=== PATIENT | female | born 1935 | race African-American/Black ===

== ENCOUNTER 2017-07-06 03:07 | Observation (INO) | payer MEDICARE, OTHER ==
[~2017-07-06] VITALS: Ht 157.5 cm; Wt 55.3 kg
[~2017-07-06 03:07] MED LIST: ASA PO; ATENOLOL PO; KDUR20 PO; LISINOPRIL PO; PROT40 PO
[2017-07-06] MEDS ORDERED: NITROGLYCERIN OINT 1GM/INCH UDPKT TD STA (03:50)
[2017-07-06 04:23] LABS: BASOPHILS % 0.9 % (0.0-2.0); EOSINOPHILS % 4.2 % (0.0-5.0); HEMATOCRIT. 33.4 % (36.0-48.0); HEMOGLOBIN. 11.2 g/dL (12.0-16.0); LYMPHOCYTES % 21.8 % (20.0-50.0); MEAN CORPUSCULAR HEMOGLOBIN 29.9 pg (28.0-32.0); MEAN CORPUSCULAR VOLUME 89.4 fL (81.0-99.0); MEAN PLATELET VOLUME 8.8 fl (7.4-10.4); MONOCYTES % 7.1 % (2.0-8.0); PLATELET 191 x1000/uL (130-400); RED BLOOD CELL COUNT 3.74 mill/uL (4.2-5.4); RED CELL DISTRIBUTION WIDTH 14.4 % (11.6-14.6)
[2017-07-06 04:42] LABS: CARBON DIOXIDE 29 mEq/L (21-32); CHLORIDE 106 mEq/L (98-107); TROPONIN I < 0.02 ng/mL (0.00-0.04)
[2017-07-06] MEDS ORDERED: CLONIDINE 0.1MG TABLET PO SCH (07:45)
[2017-07-06 08:50] VITALS: BP 174/96
[2017-07-06 09:15] VITALS: BP 174/96
[2017-07-06] MEDS ORDERED: PNEUMOCOCCAL 23-VAL P-SAC VAC 0.5 ML IM ONE (10:00)
[2017-07-06] MEDS: ENOXAPARIN 30MG/0.3ML SYR SUBCUT SCH (11:41)
[2017-07-06 12:00] VITALS: BP 127/67
[2017-07-06] MEDS ORDERED: POTASSIUM CHLORIDE 20MEQ TABLET SR PO NR (12:15)
[2017-07-06] MEDS ORDERED: REGADENOSON 0.4 MG/5 ML IV ONE (13:15)
[2017-07-06] MEDS: HYDROCHLOROTHIAZIDE 25MG TABLET PO SCH (13:34)
[2017-07-06] MEDS: LISINOPRIL 40MG TABLET PO SCH (13:34)
[2017-07-06] MEDS: ATENOLOL 50 MG TABLET PO SCH (13:35)
[2017-07-06 16:00] VITALS: BP 147/81
[2017-07-06 17:03] LABS: TROPONIN I < 0.02 ng/mL (0.00-0.04)
[2017-07-06 20:00] VITALS: BP 159/73
[2017-07-06] MEDS ORDERED: ACETAMINOPHEN 325MG TABLET PO PRN (22:15)
[2017-07-06] MEDS ORDERED: HYDROCODONE/ACETAMINOPHEN 5/325MG TABLET PO PRN (22:15)
[2017-07-06 23:47] VITALS: BP 146/68
[2017-07-07 04:06] VITALS: BP 173/82
[2017-07-07] MEDS: CLONIDINE 0.1MG TABLET PO PRN ×2 (04:14→14:34)
[2017-07-07 05:41] LABS: BASOPHILS % 1.3 % (0.0-2.0); EOSINOPHILS % 7.1 % (0.0-5.0); HEMATOCRIT. 32.7 % (36.0-48.0); HEMOGLOBIN. 10.7 g/dL (12.0-16.0); MEAN CORPUSCULAR HEMOGLOBIN 29.6 pg (28.0-32.0); MEAN CORPUSCULAR VOLUME 90.4 fL (81.0-99.0); MEAN PLATELET VOLUME 9.2 fl (7.4-10.4); MONOCYTES % 9.5 % (2.0-8.0); NEUTROPHILS % 46.1 % (40.0-76.0); PLATELET 190 x1000/uL (130-400); RED BLOOD CELL COUNT 3.62 mill/uL (4.2-5.4); RED CELL DISTRIBUTION WIDTH 14.2 % (11.6-14.6)
[2017-07-07 06:18] LABS: CARBON DIOXIDE 26 mEq/L (21-32); CHLORIDE 108 mEq/L (98-107)
[2017-07-07 08:00] VITALS: BP 128/72
[2017-07-07] MEDS ORDERED: POTASSIUM CHLORIDE 20MEQ TABLET SR PO SCH (08:00)
[2017-07-07] MEDS: HYDROCHLOROTHIAZIDE 25MG TABLET PO SCH (08:33)
[2017-07-07] MEDS: ENOXAPARIN 30MG/0.3ML SYR SUBCUT SCH (08:33)
[2017-07-07] MEDS: ATENOLOL 50 MG TABLET PO SCH (08:33)
[2017-07-07] MEDS: LISINOPRIL 40MG TABLET PO SCH (08:34)
[2017-07-07] MEDS ORDERED: REGADENOSON 0.4 MG/5 ML IV ONE (13:11)
[2017-07-07 14:05] VITALS: BP 178/85
[2017-07-07 15:35] VITALS: BP 149/69
[2017-07-07 15:42] VITALS: BP 149/69
[2017-07-07 16:00] VITALS: BP 135/68
== END 2017-07-07 17:45 | disposition home or self-care (01) ==
LOC: ER 03:09 → 6WST 05:48 → INTOOBSV 05:48 → ENRESERV 07:10
PROVIDERS: ADMIT Internal Medicine; ATTEND Internal Medicine
DX: R07.89 Other chest pain (principal); I10 Essential (primary) hypertension; E87.6 Hypokalemia; K21.9 Gastro-esophageal reflux disease without esophagitis; Z23 Encounter for immunization
CPT/HCPCS: 36415; 71010; 78452; 80048; 80053; 80061; 83690; 83735; 84484; 85025; 90471; 93005; 93017; 93306; 93970; 96372; 99285; A9500; G0378; J1650; J2785; 90732

== ENCOUNTER 2018-06-14 18:13 | Emergency (ER) | payer OTHER ==
[~2018-06-14] VITALS: Ht 162.6 cm; Wt 57.0 kg
[2018-06-14 18:47] LABS: EOSINOPHILS % 1.8 % (0.0-5.0); HEMATOCRIT. 36.2 % (36.0-48.0); LYMPHOCYTES % 30.1 % (20.0-50.0); MEAN CORPUSCULAR VOLUME 90.6 fL (81.0-99.0); MEAN PLATELET VOLUME 8.3 fl (7.4-10.4); NEUTROPHILS % 58.1 % (40.0-76.0); PLATELET 244 x1000/uL (130-400); RED CELL DISTRIBUTION WIDTH 14.7 % (11.6-14.6)
[2018-06-14] MEDS ORDERED: ONDANSETRON HCL 4MG/2ML VIAL IV STA (18:51)
[2018-06-14] MEDS ORDERED: SODIUM CHLORIDE 0.9% 1,000 ML IV ONE (18:51)
[2018-06-14 18:52] LABS: CHLORIDE 105 mEq/L (98-107)
[2018-06-14 18:53] LABS: PROTHROMBIN TIME 10.5 sec (9.4-11.6)
[2018-06-14] MEDS ORDERED: FAMOTIDINE 20MG/2ML VIAL IV ONE (19:00)
[2018-06-14] MEDS ORDERED: CLONIDINE 0.2MG TABLET PO ONE (19:45)
[2018-06-14 20:48] LABS: CLARITY URINE CLEAR (CLEAR); COLOR URINE YELLOW (YELLOW); KETONES URINE NEGATIVE (NEGATIVE); LEUKOCYTE ESTERASE URINE 3+ (NEGATIVE); NITRITE URINE NEGATIVE (NEGATIVE); OCCULT BLOOD URINE TRACE (NEGATIVE); PH URINE 5.5 (4.5-8.0); PROTEIN URINE NEGATIVE (NEGATIVE); SPECIFIC GRAVITY URINE 1.017 (1.005-1.030); UROBILINOGEN URINE 0.2 E.U./dL (0.2-1.0)
[2018-06-14 21:40] VITALS: BP 164/110
== END 2018-06-14 23:11 | disposition home or self-care (01) ==
LOC: ER 18:19
DX: K80.80 Other cholelithiasis without obstruction (principal); N39.0 Urinary tract infection, site not specified; I10 Essential (primary) hypertension
CPT/HCPCS: 36415; 71045; 76700; 80053; 81003; 83690; 85025; 85610; 85730; 87086; 93005; 99285; J7030

== ENCOUNTER 2018-09-30 17:38 | Inpatient (IN) | payer OTHER ==
[~2018-09-30] VITALS: Ht 157.5 cm; Wt 53.5 kg
[2018-09-30] MEDS ORDERED: SODIUM CHLORIDE 0.9% 1,000 ML IV ONE (18:21)
[2018-09-30] MEDS ORDERED: SODIUM CHLORIDE 0.9% 1000ML BAG (SEPSIS BOLUS) IV ONE (18:30)
[2018-09-30] MEDS ORDERED: LEVOFLOXACIN 750MG PREMIX 150 ML IV ONE (18:30)
[2018-09-30] MEDS ORDERED: ACETAMINOPHEN 325MG TABLET PO ONE (18:30)
[2018-09-30 19:05] LABS: BASOPHILS % 0.6 % (0.0-2.0); EOSINOPHILS % 2.8 % (0.0-5.0); HEMATOCRIT. 23.6 % (36.0-48.0); HEMOGLOBIN. 8.2 g/dL (12.0-16.0); LYMPHOCYTES % 20.4 % (20.0-50.0); MEAN CORPUSCULAR HEMOGLOBIN 31.3 pg (28.0-32.0); MEAN CORPUSCULAR VOLUME 90.3 fL (81.0-99.0); MEAN PLATELET VOLUME 8.9 fl (7.4-10.4); NEUTROPHILS % 68.2 % (40.0-76.0); PLATELET 169 x1000/uL (130-400); RED BLOOD CELL COUNT 2.62 mill/uL (4.2-5.4); RED CELL DISTRIBUTION WIDTH 15.1 % (11.6-14.6)
[2018-09-30 19:08] LABS: CHLORIDE 110 mEq/L (98-107)
[2018-09-30 19:10] LABS: PARTIAL THROMBOPLASTIN TIME 23.3 sec (23.4-31.0)
[2018-09-30 22:03] LABS: CLARITY URINE CLEAR (CLEAR); COLOR URINE YELLOW (YELLOW); KETONES URINE NEGATIVE (NEGATIVE); LEUKOCYTE ESTERASE URINE 3+ (NEGATIVE); NITRITE URINE NEGATIVE (NEGATIVE); OCCULT BLOOD URINE 1+ (NEGATIVE); PH URINE 6.5 (4.5-8.0); PROTEIN URINE NEGATIVE (NEGATIVE); SPECIFIC GRAVITY URINE 1.004 (1.005-1.030); UROBILINOGEN URINE 0.2 E.U./dL (0.2-1.0)
[2018-09-30] MEDS ORDERED: IOHEXOL-350 100 ML BOTTLE ONE (22:28)
[2018-10-01] VITALS (7 sets, daily range): BP systolic 142–180; BP diastolic 60–88
[2018-10-01 08:52] LABS: CHLORIDE 114 mEq/L (98-107); RED BLOOD CELL COUNT 2.67 mill/uL (4.2-5.4)
[2018-10-01 08:53] LABS: BASOPHILS % 0.5 % (0.0-2.0); EOSINOPHILS % 2.2 % (0.0-5.0); HEMATOCRIT. 24.3 % (36.0-48.0); HEMOGLOBIN. 8.2 g/dL (12.0-16.0); LYMPHOCYTES % 15.1 % (20.0-50.0); MEAN CORPUSCULAR HEMOGLOBIN 30.6 pg (28.0-32.0); MEAN PLATELET VOLUME 8.6 fl (7.4-10.4); MONOCYTES % 7.8 % (2.0-8.0); NEUTROPHILS % 74.4 % (40.0-76.0); PLATELET 194 x1000/uL (130-400); RED CELL DISTRIBUTION WIDTH 15.1 % (11.6-14.6)
[2018-10-01] MEDS: LISINOPRIL 40MG TABLET PO SCH (09:26)
[2018-10-01] MEDS: ATENOLOL 100 MG TABLET PO SCH (11:00)
[2018-10-01 15:38] LABS: HEMATOCRIT 25.4 % (36.0-48.0); HEMOGLOBIN 8.6 g/dL (12.0-16.0)
[2018-10-01] MEDS: PANTOPRAZOLE SODIUM 40 MG/VIAL IV SCH (16:24)
[2018-10-01] MEDS: DEXT 5%/0.45% NACL 1000ML 1,000 ML IV SCH (16:24)
[2018-10-01] MEDS: LEVOFLOXACIN 250MG PREMIX 50 ML IV SCH (17:19)
[2018-10-01] MEDS: CLONIDINE 0.1MG TABLET PO PRN (19:02)
[2018-10-01 20:00] LABS: HEMOGLOBIN 8.9 g/dL (12.0-16.0)
[2018-10-01] MEDS: AMLODIPINE 5MG TABLET PO SCH (21:46)
[2018-10-02] VITALS: BP 145/69
[2018-10-02 02:34] LABS: HEMATOCRIT 21.9 % (36.0-48.0); HEMOGLOBIN 7.6 g/dL (12.0-16.0)
[2018-10-02 04:00] VITALS: BP 163/76
[2018-10-02 05:29] LABS: BASOPHILS % 0.5 % (0.0-2.0); EOSINOPHILS % 3.6 % (0.0-5.0); HEMATOCRIT. 22.2 % (36.0-48.0); HEMOGLOBIN. 7.7 g/dL (12.0-16.0); LYMPHOCYTES % 21.2 % (20.0-50.0); MEAN CORPUSCULAR HEMOGLOBIN 31.3 pg (28.0-32.0); MEAN CORPUSCULAR VOLUME 90.3 fL (81.0-99.0); MEAN PLATELET VOLUME 8.4 fl (7.4-10.4); MONOCYTES % 9.2 % (2.0-8.0); NEUTROPHILS % 65.5 % (40.0-76.0); PLATELET 193 x1000/uL (130-400); RED BLOOD CELL COUNT 2.46 mill/uL (4.2-5.4); RED CELL DISTRIBUTION WIDTH 15.4 % (11.6-14.6)
[2018-10-02] MEDS: CLONIDINE 0.1MG TABLET PO PRN (06:15)
[2018-10-02] MEDS: DEXT 5%/0.45% NACL 1000ML 1,000 ML IV SCH (06:47)
[2018-10-02 07:52] VITALS: BP 131/66
[2018-10-02] MEDS: GUAIFENESIN-DM 200MG-20MG/10ML UDC PO PRN (08:04)
[2018-10-02] MEDS: AMLODIPINE 5MG TABLET PO SCH ×2 (08:04→21:38)
[2018-10-02] MEDS: PANTOPRAZOLE SODIUM 40 MG/VIAL IV SCH (08:04)
[2018-10-02] MEDS: ATENOLOL 100 MG TABLET PO SCH (08:04)
[2018-10-02] MEDS: LISINOPRIL 40MG TABLET PO SCH (08:04)
[2018-10-02] MEDS ORDERED: POTASSIUM CHLORIDE 20MEQ TABLET SR PO NR ×2 (11:10→11:20)
[2018-10-02 11:45] VITALS: BP 131/61
[2018-10-02] MEDS ORDERED: MAGNESIUM 4 G PREMIX 100 ML IV NR (12:30)
[2018-10-02 16:00] VITALS: BP 125/60
[2018-10-02] MEDS: LEVOFLOXACIN 250MG PREMIX 50 ML IV SCH (17:04)
[2018-10-02 20:00] VITALS: BP 122/60
[2018-10-03] VITALS: BP 110/65
[2018-10-03] MEDS: DEXT 5%/0.45% NACL 1000ML 1,000 ML IV SCH ×2 (01:13→08:52)
[2018-10-03 04:00] VITALS: BP 130/66
[2018-10-03 06:25] LABS: HEMATOCRIT 23.2 % (36.0-48.0); HEMOGLOBIN 7.9 g/dL (12.0-16.0)
[2018-10-03 08:00] VITALS: BP 121/61
[2018-10-03] MEDS: LISINOPRIL 40MG TABLET PO SCH (08:52)
[2018-10-03] MEDS: ATENOLOL 100 MG TABLET PO SCH (08:52)
[2018-10-03] MEDS: PANTOPRAZOLE SODIUM 40 MG/VIAL IV SCH (08:52)
[2018-10-03] MEDS: AMLODIPINE 5MG TABLET PO SCH ×2 (08:53→21:53)
[2018-10-03 12:00] VITALS: BP 148/59
[2018-10-03 16:00] VITALS: BP 151/62
[2018-10-03] MEDS: LEVOFLOXACIN 250MG PREMIX 50 ML IV SCH (17:04)
[2018-10-03 20:00] VITALS: BP 118/60
[2018-10-04] VITALS: BP 145/75
[2018-10-04] MEDS: ACETAMINOPHEN 325MG TABLET PO PRN (01:35)
[2018-10-04] MEDS ORDERED: MORPHINE SULFATE 4 MG/ML CPJ (NOT FOR IM USE) IV NR (02:15)
[2018-10-04] MEDS: DEXT 5%/0.45% NACL 1000ML 1,000 ML IV SCH ×2 (03:35→10:33)
[2018-10-04 04:00] VITALS: BP 146/70
[2018-10-04] MEDS: AMLODIPINE 5MG TABLET PO SCH ×2 (09:00→21:54)
[2018-10-04] MEDS: LISINOPRIL 40MG TABLET PO SCH (10:33)
[2018-10-04] MEDS: ATENOLOL 100 MG TABLET PO SCH (10:33)
[2018-10-04] MEDS: PANTOPRAZOLE SODIUM 40 MG/VIAL IV SCH (10:33)
[2018-10-04] MEDS: LEVOFLOXACIN 250MG PREMIX 50 ML IV SCH (17:00)
[2018-10-04 17:04] LABS: HEMATOCRIT 24.7 % (36.0-48.0); HEMOGLOBIN 8.4 g/dL (12.0-16.0); MEAN CORPUSCULAR VOLUME 91.1 fL (81.0-99.0); PLATELET 253 x1000/uL (130-400); RED BLOOD CELL COUNT 2.71 mill/uL (4.2-5.4); RED CELL DISTRIBUTION WIDTH 15.3 % (11.6-14.6)
[2018-10-04] MEDS: ONDANSETRON HCL 4MG/2ML INJ IV PRN (20:25)
[2018-10-04 21:26] VITALS: BP 152/65
[2018-10-05 08:00] VITALS: BP 138/60
[2018-10-05] MEDS: LISINOPRIL 40MG TABLET PO SCH (11:50)
[2018-10-05] MEDS: ATENOLOL 100 MG TABLET PO SCH (11:50)
[2018-10-05] MEDS: AMLODIPINE 5MG TABLET PO SCH ×2 (11:50→20:54)
[2018-10-05 12:00] VITALS: BP 111/59
[2018-10-05] MEDS: DEXT 5%/0.45% NACL 1000ML 1,000 ML IV SCH ×2 (12:35→13:46)
[2018-10-05] MEDS: PANTOPRAZOLE SODIUM 40 MG/VIAL IV SCH (13:38)
[2018-10-05 16:00] VITALS: BP 130/61
[2018-10-05] MEDS: LEVOFLOXACIN 250MG PREMIX 50 ML IV SCH (17:01)
[2018-10-05 20:00] VITALS: BP 113/74
[2018-10-06] VITALS: BP 133/64
[2018-10-06] MEDS: DEXT 5%/0.45% NACL 1000ML 1,000 ML IV SCH ×2 (01:42→18:25)
[2018-10-06 04:00] VITALS: BP 153/73
[2018-10-06 08:00] VITALS: BP 142/57
[2018-10-06] MEDS: AMLODIPINE 5MG TABLET PO SCH ×2 (09:52→21:06)
[2018-10-06] MEDS: LISINOPRIL 40MG TABLET PO SCH (09:53)
[2018-10-06] MEDS: ATENOLOL 100 MG TABLET PO SCH (09:53)
[2018-10-06] MEDS: PANTOPRAZOLE SODIUM 40 MG/VIAL IV SCH (09:53)
[2018-10-06 12:30] VITALS: BP 120/77
[2018-10-06 16:00] VITALS: BP 124/59
[2018-10-06] MEDS: LEVOFLOXACIN 250MG PREMIX 50 ML IV SCH (18:25)
[2018-10-06 20:00] VITALS: BP 136/63
[2018-10-06] MEDS: ONDANSETRON HCL 4MG/2ML INJ IV PRN (21:35)
[2018-10-07] VITALS: BP 118/50
[2018-10-07 04:00] VITALS: BP 133/59
[2018-10-07 08:00] VITALS: BP 142/73
[2018-10-07] MEDS: PANTOPRAZOLE SODIUM 40 MG/VIAL IV SCH (10:25)
[2018-10-07] MEDS: LISINOPRIL 40MG TABLET PO SCH (10:25)
[2018-10-07] MEDS: AMLODIPINE 5MG TABLET PO SCH ×2 (10:25→20:46)
[2018-10-07] MEDS: ATENOLOL 100 MG TABLET PO SCH (10:26)
[2018-10-07] MEDS: DEXT 5%/0.45% NACL 1000ML 1,000 ML IV SCH (11:58)
[2018-10-07 12:00] VITALS: BP 128/60
[2018-10-07 16:00] VITALS: BP 125/50
[2018-10-07] MEDS: LEVOFLOXACIN 250MG PREMIX 50 ML IV SCH (18:38)
[2018-10-07 20:00] VITALS: BP 121/68
[2018-10-07] MEDS: DOCUSATE SODIUM 100MG CAPSULE PO SCH (20:46)
[2018-10-08] VITALS: BP 141/65
[2018-10-08 04:00] VITALS: BP 131/67
[2018-10-08] MEDS: DEXT 5%/0.45% NACL 1000ML 1,000 ML IV SCH (06:19)
[2018-10-08 08:00] VITALS: BP 127/42
[2018-10-08] MEDS: AMLODIPINE 5MG TABLET PO SCH ×2 (09:13→21:51)
[2018-10-08] MEDS: ATENOLOL 100 MG TABLET PO SCH (09:13)
[2018-10-08] MEDS: DOCUSATE SODIUM 100MG CAPSULE PO SCH ×2 (09:13→16:26)
[2018-10-08] MEDS: PANTOPRAZOLE SODIUM 40 MG/VIAL IV SCH (09:14)
[2018-10-08] MEDS: LISINOPRIL 40MG TABLET PO SCH (09:14)
[2018-10-08 12:00] VITALS: BP 111/49
[2018-10-08 16:00] VITALS: BP 112/30
[2018-10-08] MEDS: LEVOFLOXACIN 250MG PREMIX 50 ML IV SCH (16:26)
[2018-10-08 20:00] VITALS: BP 148/71
[2018-10-09] VITALS: BP 139/60
[2018-10-09 04:00] VITALS: BP 142/73
[2018-10-09] MEDS: ACETAMINOPHEN 325MG TABLET PO PRN ×2 (07:06→23:08)
[2018-10-09] MEDS: DEXT 5%/0.45% NACL 1000ML 1,000 ML IV SCH ×2 (07:34→23:01)
[2018-10-09 08:00] VITALS: BP 134/64
[2018-10-09] MEDS: DOCUSATE SODIUM 100MG CAPSULE PO SCH ×2 (09:09→16:52)
[2018-10-09] MEDS: LISINOPRIL 40MG TABLET PO SCH (09:09)
[2018-10-09] MEDS: ATENOLOL 100 MG TABLET PO SCH (09:10)
[2018-10-09] MEDS: AMLODIPINE 5MG TABLET PO SCH ×2 (09:10→22:51)
[2018-10-09] MEDS: PANTOPRAZOLE SODIUM 40 MG/VIAL IV SCH (09:10)
[2018-10-09 12:00] VITALS: BP 138/70
[2018-10-09 16:00] VITALS: BP 142/64
[2018-10-09 20:00] VITALS: BP 121/41
[2018-10-10] VITALS: BP 140/61
[2018-10-10 04:00] VITALS: BP 145/65
[2018-10-10] MEDS: DEXT 5%/0.45% NACL 1000ML 1,000 ML IV SCH ×2 (05:35→21:47)
[2018-10-10 08:00] VITALS: BP 137/53
[2018-10-10] MEDS: LISINOPRIL 40MG TABLET PO SCH (08:51)
[2018-10-10] MEDS: DOCUSATE SODIUM 100MG CAPSULE PO SCH ×2 (08:51→16:16)
[2018-10-10] MEDS: AMLODIPINE 5MG TABLET PO SCH ×2 (08:51→21:41)
[2018-10-10] MEDS: ATENOLOL 100 MG TABLET PO SCH (08:51)
[2018-10-10] MEDS: PANTOPRAZOLE SODIUM 40 MG/VIAL IV SCH (08:51)
[2018-10-10 12:00] VITALS: BP 130/67
[2018-10-10 16:00] VITALS: BP 120/45
[2018-10-10 20:00] VITALS: BP 118/48
[2018-10-10] MEDS: ACETAMINOPHEN 325MG TABLET PO PRN (21:41)
[2018-10-10] MEDS: GUAIFENESIN-DM 200MG-20MG/10ML UDC PO PRN (21:41)
[2018-10-11] VITALS: BP_SYST 113; BP_SYST 120; BP_DIAS 57; BP_DIAS 76
[2018-10-11 04:00] VITALS: BP 108/49
[2018-10-11 08:00] VITALS: BP 128/59
[2018-10-11] MEDS: PANTOPRAZOLE SODIUM 40 MG/VIAL IV SCH (10:36)
[2018-10-11] MEDS: ATENOLOL 100 MG TABLET PO SCH (10:36)
[2018-10-11] MEDS: DOCUSATE SODIUM 100MG CAPSULE PO SCH ×2 (10:36→17:48)
[2018-10-11] MEDS: AMLODIPINE 5MG TABLET PO SCH ×2 (10:36→20:57)
[2018-10-11] MEDS: LISINOPRIL 40MG TABLET PO SCH (10:36)
[2018-10-11 12:00] VITALS: BP 150/73
[2018-10-11 16:00] VITALS: BP 125/63
[2018-10-11 20:00] VITALS: BP 143/64
[2018-10-12 00:41] VITALS: BP 135/59
[2018-10-12 04:30] VITALS: BP 124/51
[2018-10-12 08:00] VITALS: BP 136/82
[2018-10-12] MEDS: PANTOPRAZOLE SODIUM 40 MG/VIAL IV SCH (09:21)
[2018-10-12] MEDS: DOCUSATE SODIUM 100MG CAPSULE PO SCH (09:22)
[2018-10-12] MEDS: LISINOPRIL 40MG TABLET PO SCH (09:22)
[2018-10-12] MEDS: AMLODIPINE 5MG TABLET PO SCH (09:22)
[2018-10-12] MEDS: ATENOLOL 100 MG TABLET PO SCH (09:23)
[2018-10-12 12:00] VITALS: BP 113/44
== END 2018-10-12 15:30 | DRG 378 ==
LOC: ER 17:38 → 5WST 21:28 → ENRESERV 21:41
PROVIDERS: ADMIT Internal Medicine; ATTEND Internal Medicine
DX: K57.31 Diverticulosis of large intestine without perforation or abscess with bleeding (principal); E87.0 Hyperosmolality and hypernatremia; E44.1 Mild protein-calorie malnutrition; R07.89 Other chest pain; K80.20 Calculus of gallbladder without cholecystitis without obstruction; R10.9 Unspecified abdominal pain; K57.91 Diverticulosis of intestine, part unspecified, without perforation or abscess with bleeding; M62.81 Muscle weakness (generalized); K59.00 Constipation, unspecified; E87.6 Hypokalemia; E83.42 Hypomagnesemia; D64.9 Anemia, unspecified; F03.90 Unspecified dementia, unspecified severity, without behavioral disturbance, psychotic disturbance, mood disturbance, and anxiety; I10 Essential (primary) hypertension; Z82.49 Family history of ischemic heart disease and other diseases of the circulatory system; Z68.21 Body mass index [BMI] 21.0-21.9, adult; Z79.899 Other long term (current) drug therapy
CPT/HCPCS: 36415; 71045; 71275; 80048; 80051; 80061; 82962; 83036; 83605; 83735; 83880; 84484; 85014; 85018; 85027; 85379; 86850; 86900; 93005; 93970; 96365; 96366; 97162; 99285; C1893; C9113; J1956; J2405; J3475; J3490; J7030; Q9967

== ENCOUNTER 2022-07-09 16:12 | Inpatient (IN) | payer OTHER ==
[~2022-07-09] VITALS: Ht 162.6 cm; Wt 54.4 kg
[~2022-07-09 16:12] MED LIST changes: +AMLO5TAB88 PO; -KDUR20 PO; -PROT40 PO
[2022-07-09] MEDS ORDERED: SODIUM CHLORIDE 0.9% 1,000 ML IV ONE ×2 (18:45→22:45)
[2022-07-09 18:53] LABS: EOSINOPHILS % 2.9 % (0.0-5.0); HEMATOCRIT. 29.7 % (36.0-48.0); HEMOGLOBIN. 9.6 g/dL (12.0-16.0); MEAN CORPUSCULAR HEMOGLOBIN 28.7 pg (28.0-32.0); MEAN CORPUSCULAR VOLUME 88.5 fL (81.0-99.0); MEAN PLATELET VOLUME 8.4 fl (7.4-10.4); NEUTROPHILS % 59.1 % (40.0-76.0); PLATELET 288 x1000/uL (130-400); RED BLOOD CELL COUNT 3.35 mill/uL (4.2-5.4); RED CELL DISTRIBUTION WIDTH 15.7 % (11.6-14.6)
[2022-07-09 19:04] LABS: CHLORIDE 110 mEq/L (98-107)
[2022-07-09 20:38] LABS: PROTHROMBIN TIME 10.9 sec (9.6-11.0)
[2022-07-09 22:09] LABS: CLARITY URINE CLOUDY (CLEAR); COLOR URINE RED (YELLOW); KETONES URINE NEGATIVE (NEGATIVE); LEUKOCYTE ESTERASE URINE 3+ (NEGATIVE); NITRITE URINE NEGATIVE (NEGATIVE); OCCULT BLOOD URINE 3+ (NEGATIVE); PH URINE 8.5 (4.5-8.0); PROTEIN URINE 1+ (NEGATIVE); SPECIFIC GRAVITY URINE 1.008 (1.005-1.030); UROBILINOGEN URINE 0.2 E.U./dL (0.2-1.0)
[2022-07-09] MEDS ORDERED: HALOPERIDOL LACTATE 5MG/ML VIAL IM ONE (22:45)
[2022-07-09] MEDS ORDERED: CEFTRIAXONE 1 G PREMIX 50 ML IV ONE (22:45)
[2022-07-10] MEDS ORDERED: CLONIDINE 0.2MG TABLET PO NR (08:15)
[2022-07-10] MEDS ORDERED: ONDANSETRON HCL 4MG/2ML INJ IV PRN (08:45)
[2022-07-10] MEDS: LOSARTAN POTASSIUM 100 MG TABLET PO SCH (09:00)
[2022-07-10] MEDS ORDERED: HYDRALAZINE 20MG/ML VIAL IV NR (09:00)
[2022-07-10] MEDS: SODIUM CHLORIDE 0.45% 1,000 ML IV SCH ×2 (09:02→17:51)
[2022-07-10 10:28] VITALS: BP 164/106
[2022-07-10 12:00] VITALS: BP 150/98
[2022-07-10 16:00] VITALS: BP 133/67
[2022-07-10 20:00] VITALS: BP 158/87
[2022-07-10] MEDS: CEFTRIAXONE 1,000 MG in DEXTROSE 5% WATER 50 ML IV SCH (20:23)
[2022-07-10] MEDS ORDERED: CEFTRIAXONE 1,000 MG in DEXTROSE 5% WATER 50 ML IV SCH (21:00)
[2022-07-11] VITALS (7 sets, daily range): BP systolic 132–164; BP diastolic 72–98
[2022-07-11] MEDS: SODIUM CHLORIDE 0.45% 1,000 ML IV SCH (04:51)
[2022-07-11 07:45] LABS: EOSINOPHILS % 3.7 % (0.0-5.0); HEMATOCRIT. 32.6 % (36.0-48.0); HEMOGLOBIN. 10.4 g/dL (12.0-16.0); LYMPHOCYTES % 25.4 % (20.0-50.0); MEAN CORPUSCULAR HEMOGLOBIN 28.7 pg (28.0-32.0); MEAN CORPUSCULAR VOLUME 90.1 fL (81.0-99.0); MEAN PLATELET VOLUME 8.8 fl (7.4-10.4); MONOCYTES % 8.6 % (2.0-8.0); NEUTROPHILS % 61.3 % (40.0-76.0); PLATELET 275 x1000/uL (130-400); RED BLOOD CELL COUNT 3.62 mill/uL (4.2-5.4); RED CELL DISTRIBUTION WIDTH 15.5 % (11.6-14.6)
[2022-07-11] MEDS: LOSARTAN POTASSIUM 100 MG TABLET PO SCH (09:41)
[2022-07-11] MEDS ORDERED: LEVO500T90 MT (11:20)
[2022-07-11] MEDS: HYDRALAZINE 20MG/ML VIAL IV PRN (16:41)
[2022-07-11] MEDS: CEFTRIAXONE 1,000 MG in DEXTROSE 5% WATER 50 ML IV SCH (19:33)
[2022-07-12] VITALS: BP 142/92
[2022-07-12] MEDS: SODIUM CHLORIDE 0.45% 1,000 ML IV SCH ×2 (01:02→20:04)
[2022-07-12] MEDS: HYDRALAZINE 20MG/ML VIAL IV PRN (03:44)
[2022-07-12 04:00] VITALS: BP 167/103
[2022-07-12 08:00] VITALS: BP 127/81
[2022-07-12] MEDS: LOSARTAN POTASSIUM 100 MG TABLET PO SCH (08:10)
[2022-07-12 12:00] VITALS: BP 144/75
[2022-07-12 16:00] VITALS: BP 147/78
[2022-07-12 20:00] VITALS: BP 141/65
[2022-07-12] MEDS: CEFTRIAXONE 1,000 MG in DEXTROSE 5% WATER 50 ML IV SCH (20:03)
[2022-07-13] VITALS: BP 150/84
[2022-07-13] MEDS: HYDRALAZINE 20MG/ML VIAL IV PRN (03:41)
[2022-07-13 04:00] VITALS: BP 162/87
[2022-07-13 08:00] VITALS: BP 150/68
[2022-07-13] MEDS: LOSARTAN POTASSIUM 100 MG TABLET PO SCH (09:57)
[2022-07-13 12:00] VITALS: BP 158/79
[2022-07-13 16:00] VITALS: BP 164/85
[2022-07-13] MEDS: SODIUM CHLORIDE 0.45% 1,000 ML IV SCH (16:44)
[2022-07-13 20:00] VITALS: BP 149/81
[2022-07-13] MEDS: CEFTRIAXONE 1,000 MG in DEXTROSE 5% WATER 50 ML IV SCH (21:20)
[2022-07-14] VITALS (7 sets, daily range): BP systolic 110–171; BP diastolic 68–93
[2022-07-14] MEDS: HYDRALAZINE 20MG/ML VIAL IV PRN ×2 (00:48→20:27)
[2022-07-14] MEDS: LOSARTAN POTASSIUM 100 MG TABLET PO SCH (10:05)
[2022-07-14] MEDS: SODIUM CHLORIDE 0.45% 1,000 ML IV SCH (13:02)
[2022-07-14] MEDS: CEFTRIAXONE 1,000 MG in DEXTROSE 5% WATER 50 ML IV SCH (20:26)
[2022-07-15] VITALS: BP 166/65
[2022-07-15 04:00] VITALS: BP 149/62
[2022-07-15 08:00] VITALS: BP 171/81
[2022-07-15] MEDS: SODIUM CHLORIDE 0.45% 1,000 ML IV SCH (08:39)
[2022-07-15] MEDS: LOSARTAN POTASSIUM 100 MG TABLET PO SCH (08:39)
[2022-07-15 12:00] VITALS: BP 159/92
[2022-07-15 16:00] VITALS: BP 132/89
[2022-07-15] MEDS: DEXT 5%/0.45% NACL 1000ML 1,000 ML IV SCH (17:55)
[2022-07-15 20:00] VITALS: BP 180/102
[2022-07-15] MEDS: HYDRALAZINE 10 MG in SODIUM CHLORIDE 0.9% 49.5 ML IV PRN (21:18)
[2022-07-16] VITALS: BP 140/67
[2022-07-16 04:01] VITALS: BP 141/81
[2022-07-16 08:00] VITALS: BP 166/91
[2022-07-16] MEDS ORDERED: MORPHINE SULFATE 2 MG/ML CPJ (NOT FOR IM USE) IV PRN (08:15)
[2022-07-16] MEDS ORDERED: NALOXONE HCL 0.4MG/ML VIAL IV PRN (08:30)
[2022-07-16] MEDS: LOSARTAN POTASSIUM 100 MG TABLET PO SCH (09:00)
[2022-07-16] MEDS: DEXT 5%/0.45% NACL 1000ML 1,000 ML IV SCH (09:46)
[2022-07-16] MEDS ORDERED: LACTULOSE 20G/30ML UDC PO NR (10:15)
[2022-07-16 12:00] VITALS: BP 153/89
[2022-07-16 20:00] VITALS: BP 192/101
[2022-07-16] MEDS: HYDRALAZINE 10 MG in SODIUM CHLORIDE 0.9% 49.5 ML IV PRN (20:05)
[2022-07-17] VITALS (7 sets, daily range): BP systolic 136–169; BP diastolic 63–89
[2022-07-17] MEDS: DEXT 5%/0.45% NACL 1000ML 1,000 ML IV SCH ×2 (01:45→18:59)
[2022-07-17] MEDS ORDERED: METOPROLOL TARTRATE 50MG TABLET PO NR (05:45)
[2022-07-17] MEDS ORDERED: METOPROLOL TARTRATE 50MG TABLET PO SCH (05:45)
[2022-07-17] MEDS: LOSARTAN POTASSIUM 100 MG TABLET PO SCH (09:58)
[2022-07-17] MEDS: METOPROLOL TARTRATE 50MG TABLET PO SCH ×2 (09:58→16:21)
[2022-07-17 10:57] LABS: HEMATOCRIT. 28.4 % (36.0-48.0); HEMOGLOBIN. 9.1 g/dL (12.0-16.0); MEAN CORPUSCULAR HEMOGLOBIN 28.8 pg (28.0-32.0); MEAN CORPUSCULAR VOLUME 89.5 fL (81.0-99.0); MEAN PLATELET VOLUME 8.1 fl (7.4-10.4); PLATELET 244 x1000/uL (130-400); RED BLOOD CELL COUNT 3.17 mill/uL (4.2-5.4); RED CELL DISTRIBUTION WIDTH 15.7 % (11.6-14.6)
[2022-07-17 10:58] LABS: CHLORIDE 111 mEq/L (98-107)
[2022-07-17 13:07] LABS: PLATELET ESTIMATE NORMAL
[2022-07-17] MEDS ORDERED: POTASSIUM CHLORIDE 20MEQ/PACKET PO NR (15:45)
[2022-07-17] MEDS: ASPIRIN 81MG EC TABLET PO SCH (16:21)
[2022-07-17] MEDS: ACETAMINOPHEN 325MG TABLET PO PRN (17:48)
[2022-07-17] MEDS: ATORVASTATIN CALCIUM 40MG TABLET PO SCH (21:14)
[2022-07-17] MEDS: PIPERACILLIN/TAZOBACTAM 3.375 G in DEXTROSE 5% WATER 50 ML IV SCH (21:15)
[2022-07-18] VITALS (7 sets, daily range): BP systolic 138–175; BP diastolic 57–97
[2022-07-18] MEDS: ACETAMINOPHEN 325MG TABLET PO PRN ×2 (04:32→20:57)
[2022-07-18] MEDS: PIPERACILLIN/TAZOBACTAM 3.375 G in DEXTROSE 5% WATER 50 ML IV SCH ×3 (05:15→23:48)
[2022-07-18 07:14] LABS: BASOPHILS % 0.5 % (0.0-2.0); EOSINOPHILS % 0.2 % (0.0-5.0); HEMATOCRIT. 26.3 % (36.0-48.0); HEMOGLOBIN. 8.4 g/dL (12.0-16.0); LYMPHOCYTES % 16.3 % (20.0-50.0); MEAN CORPUSCULAR HEMOGLOBIN 28.4 pg (28.0-32.0); MEAN CORPUSCULAR VOLUME 89.2 fL (81.0-99.0); MEAN PLATELET VOLUME 7.9 fl (7.4-10.4); MONOCYTES % 7.9 % (2.0-8.0); NEUTROPHILS % 75.1 % (40.0-76.0); PLATELET 189 x1000/uL (130-400); RED BLOOD CELL COUNT 2.95 mill/uL (4.2-5.4); RED CELL DISTRIBUTION WIDTH 15.5 % (11.6-14.6)
[2022-07-18 07:28] LABS: CHLORIDE 110 mEq/L (98-107)
[2022-07-18] MEDS: ASPIRIN 81MG EC TABLET PO SCH ×2 (08:57→09:00)
[2022-07-18] MEDS: METOPROLOL TARTRATE 50MG TABLET PO SCH ×3 (08:57→17:15)
[2022-07-18] MEDS: LOSARTAN POTASSIUM 100 MG TABLET PO SCH ×2 (08:58→09:00)
[2022-07-18] MEDS ORDERED: POTASSIUM CHLORIDE 20MEQ/PACKET PO NR (09:15)
[2022-07-18] MEDS ORDERED: MAGNESIUM 2 G PREMIX 50 ML IV NR (10:30)
[2022-07-18] MEDS: DEXT 5%/0.45% NACL 1000ML 1,000 ML IV SCH (11:52)
[2022-07-18] MEDS: ATORVASTATIN CALCIUM 40MG TABLET PO SCH (20:57)
[2022-07-18] MEDS ORDERED: POTASSIUM CHLORIDE INJ 40 MEQ in DEXT 5% WATER 250 ML IV ONE (21:00)
[2022-07-19 04:00] VITALS: BP 150/90
[2022-07-19] MEDS: DEXT 5%/0.45% NACL 1000ML 1,000 ML IV SCH ×2 (05:44→21:23)
[2022-07-19] MEDS: PIPERACILLIN/TAZOBACTAM 3.375 G in DEXTROSE 5% WATER 50 ML IV SCH ×3 (05:45→21:24)
[2022-07-19 08:00] VITALS: BP 165/98
[2022-07-19] MEDS: LOSARTAN POTASSIUM 100 MG TABLET PO SCH (08:06)
[2022-07-19] MEDS: ASPIRIN 81MG EC TABLET PO SCH (08:06)
[2022-07-19] MEDS: METOPROLOL TARTRATE 50MG TABLET PO SCH ×2 (08:06→17:35)
[2022-07-19 11:38] VITALS: BP 130/88
[2022-07-19 16:00] VITALS: BP 161/85
[2022-07-19 20:00] VITALS: BP 152/80
[2022-07-19] MEDS: AMLODIPINE 2.5MG TABLET PO SCH (21:23)
[2022-07-19] MEDS: ATORVASTATIN CALCIUM 40MG TABLET PO SCH (21:23)
[2022-07-20] VITALS: BP 154/79
[2022-07-20 04:00] VITALS: BP 145/66
[2022-07-20] MEDS: PIPERACILLIN/TAZOBACTAM 3.375 G in DEXTROSE 5% WATER 50 ML IV SCH ×3 (06:15→22:28)
[2022-07-20 06:44] LABS: BASOPHILS % 0.6 % (0.0-2.0); EOSINOPHILS % 0.3 % (0.0-5.0); HEMATOCRIT. 28.7 % (36.0-48.0); HEMOGLOBIN. 9.3 g/dL (12.0-16.0); LYMPHOCYTES % 35.1 % (20.0-50.0); MEAN CORPUSCULAR HEMOGLOBIN 28.7 pg (28.0-32.0); MEAN CORPUSCULAR VOLUME 88.7 fL (81.0-99.0); MONOCYTES % 7.7 % (2.0-8.0); NEUTROPHILS % 56.3 % (40.0-76.0); PLATELET 178 x1000/uL (130-400); RED BLOOD CELL COUNT 3.24 mill/uL (4.2-5.4); RED CELL DISTRIBUTION WIDTH 15.4 % (11.6-14.6)
[2022-07-20 07:33] LABS: CHLORIDE 111 mEq/L (98-107)
[2022-07-20 08:00] VITALS: BP 144/84
[2022-07-20] MEDS: METOPROLOL TARTRATE 50MG TABLET PO SCH ×2 (09:00→17:00)
[2022-07-20] MEDS: ASPIRIN 81MG EC TABLET PO SCH (09:00)
[2022-07-20] MEDS: LOSARTAN POTASSIUM 100 MG TABLET PO SCH (09:00)
[2022-07-20] MEDS: AMLODIPINE 2.5MG TABLET PO SCH ×2 (09:00→21:00)
[2022-07-20 12:00] VITALS: BP 143/82
[2022-07-20] MEDS ORDERED: POTASSIUM CHLORIDE INJ 40 MEQ in DEXT 5% WATER 250 ML IV ONE (15:00)
[2022-07-20 16:00] VITALS: BP 145/87
[2022-07-20 20:00] VITALS: BP 148/83
[2022-07-20] MEDS: ATORVASTATIN CALCIUM 40MG TABLET PO SCH (21:00)
[2022-07-21] VITALS: BP 151/86
[2022-07-21 04:00] VITALS: BP 156/78
[2022-07-21] MEDS: DEXT 5%/0.45% NACL 1000ML 1,000 ML IV SCH ×2 (05:52→22:28)
[2022-07-21] MEDS: PIPERACILLIN/TAZOBACTAM 3.375 G in DEXTROSE 5% WATER 50 ML IV SCH ×3 (05:52→22:27)
[2022-07-21 08:00] VITALS: BP 155/84
[2022-07-21] MEDS: LOSARTAN POTASSIUM 100 MG TABLET PO SCH (09:00)
[2022-07-21] MEDS: AMLODIPINE 2.5MG TABLET PO SCH ×2 (09:00→22:27)
[2022-07-21] MEDS: METOPROLOL TARTRATE 50MG TABLET PO SCH ×2 (09:00→17:00)
[2022-07-21] MEDS: ASPIRIN 81MG EC TABLET PO SCH (09:00)
[2022-07-21] MEDS: ACETAMINOPHEN 325MG TABLET PO PRN (09:38)
[2022-07-21 12:00] VITALS: BP 150/83
[2022-07-21 16:00] VITALS: BP 136/84
[2022-07-21 17:06] LABS: BASOPHILS % 0.4 % (0.0-2.0); EOSINOPHILS % 0.5 % (0.0-5.0); HEMOGLOBIN. 8.5 g/dL (12.0-16.0); LYMPHOCYTES % 41.7 % (20.0-50.0); MEAN CORPUSCULAR HEMOGLOBIN 28.6 pg (28.0-32.0); NEUTROPHILS % 49.4 % (40.0-76.0); PLATELET 145 x1000/uL (130-400); RED BLOOD CELL COUNT 2.96 mill/uL (4.2-5.4); RED CELL DISTRIBUTION WIDTH 15.7 % (11.6-14.6)
[2022-07-21 17:15] LABS: CHLORIDE 110 mEq/L (98-107)
[2022-07-21 20:00] VITALS: BP 158/92
[2022-07-21] MEDS: ATORVASTATIN CALCIUM 40MG TABLET PO SCH (22:27)
[2022-07-21] MEDS: PANTOPRAZOLE SODIUM 40 MG/VIAL IV SCH (22:27)
[2022-07-22] VITALS: BP 150/79
[2022-07-22 04:00] VITALS: BP 142/88
[2022-07-22] MEDS: PIPERACILLIN/TAZOBACTAM 3.375 G in DEXTROSE 5% WATER 50 ML IV SCH ×3 (06:00→21:22)
[2022-07-22 08:00] VITALS: BP 142/88
[2022-07-22] MEDS: ASPIRIN 81MG EC TABLET PO SCH (09:00)
[2022-07-22] MEDS: METOPROLOL TARTRATE 50MG TABLET PO SCH ×2 (09:00→17:02)
[2022-07-22] MEDS: LOSARTAN POTASSIUM 100 MG TABLET PO SCH (09:00)
[2022-07-22] MEDS: AMLODIPINE 2.5MG TABLET PO SCH ×2 (09:00→21:22)
[2022-07-22] MEDS: PANTOPRAZOLE SODIUM 40 MG/VIAL IV SCH ×2 (10:19→21:22)
[2022-07-22 10:25] LABS: BASOPHILS % 0.8 % (0.0-2.0); EOSINOPHILS % 0.6 % (0.0-5.0); HEMATOCRIT. 27.5 % (36.0-48.0); HEMOGLOBIN. 8.8 g/dL (12.0-16.0); LYMPHOCYTES % 38.1 % (20.0-50.0); MEAN CORPUSCULAR HEMOGLOBIN 28.1 pg (28.0-32.0); MEAN CORPUSCULAR VOLUME 87.7 fL (81.0-99.0); MEAN PLATELET VOLUME 7.9 fl (7.4-10.4); NEUTROPHILS % 50.5 % (40.0-76.0); PLATELET 120 x1000/uL (130-400); RED BLOOD CELL COUNT 3.14 mill/uL (4.2-5.4); RED CELL DISTRIBUTION WIDTH 15.6 % (11.6-14.6)
[2022-07-22 10:33] LABS: CHLORIDE 109 mEq/L (98-107)
[2022-07-22 10:35] LABS: PROTHROMBIN TIME 11.1 sec (9.6-11.0)
[2022-07-22] MEDS: DEXT 5%/0.45% NACL KCL 20MEQ/L 1,000 ML IV SCH (10:50)
[2022-07-22] MEDS ORDERED: KCL 20MEQ/100ML PREMIX 100 ML IV NR ×2 (11:00→13:00)
[2022-07-22] MEDS ORDERED: POTASSIUM CHLORIDE 20MEQ/PACKET PO NR (13:00)
[2022-07-22] MEDS ORDERED: MAGNESIUM 4 G PREMIX 100 ML IV NR (14:00)
[2022-07-22 16:00] VITALS: BP 144/88
[2022-07-22 20:00] VITALS: BP 155/91
[2022-07-22] MEDS: ATORVASTATIN CALCIUM 40MG TABLET PO SCH (21:22)
[2022-07-23] VITALS: BP 140/91
[2022-07-23 04:00] VITALS: BP 138/88
[2022-07-23] MEDS: DEXT 5%/0.45% NACL KCL 20MEQ/L 1,000 ML IV SCH ×3 (04:19→21:43)
[2022-07-23 06:39] LABS: BASOPHILS % 0.4 % (0.0-2.0); EOSINOPHILS % 0.8 % (0.0-5.0); HEMOGLOBIN. 9.5 g/dL (12.0-16.0); MEAN CORPUSCULAR HEMOGLOBIN 28.2 pg (28.0-32.0); MEAN CORPUSCULAR VOLUME 88.6 fL (81.0-99.0); MEAN PLATELET VOLUME 8.8 fl (7.4-10.4); MONOCYTES % 10.1 % (2.0-8.0); NEUTROPHILS % 34.7 % (40.0-76.0); PLATELET 126 x1000/uL (130-400); RED BLOOD CELL COUNT 3.38 mill/uL (4.2-5.4); RED CELL DISTRIBUTION WIDTH 15.7 % (11.6-14.6)
[2022-07-23 06:45] LABS: CHLORIDE 110 mEq/L (98-107)
[2022-07-23 08:00] VITALS: BP 150/92
[2022-07-23] MEDS: ASPIRIN 81MG EC TABLET PO SCH (10:16)
[2022-07-23] MEDS: LOSARTAN POTASSIUM 100 MG TABLET PO SCH (10:17)
[2022-07-23] MEDS: PANTOPRAZOLE SODIUM 40 MG/VIAL IV SCH ×2 (10:17→21:02)
[2022-07-23] MEDS: AMLODIPINE 2.5MG TABLET PO SCH ×2 (10:17→21:02)
[2022-07-23] MEDS: METOPROLOL TARTRATE 50MG TABLET PO SCH ×2 (10:17→17:18)
[2022-07-23 12:00] VITALS: BP 148/81
[2022-07-23] MEDS ORDERED: POTASSIUM CHLORIDE 20MEQ/PACKET PO NR (12:00)
[2022-07-23 16:00] VITALS: BP 153/88
[2022-07-23 20:00] VITALS: BP 176/104
[2022-07-23] MEDS: ATORVASTATIN CALCIUM 40MG TABLET PO SCH ×2 (21:00→21:02)
[2022-07-23] MEDS: HYDRALAZINE 20MG/ML VIAL IV PRN (21:20)
[2022-07-24] VITALS: BP 158/76
[2022-07-24 04:00] VITALS: BP 139/88
[2022-07-24 08:00] VITALS: BP 145/76
[2022-07-24] MEDS: LOSARTAN POTASSIUM 100 MG TABLET PO SCH (09:00)
[2022-07-24] MEDS: METOPROLOL TARTRATE 50MG TABLET PO SCH ×2 (09:00→16:44)
[2022-07-24] MEDS: ASPIRIN 81MG EC TABLET PO SCH (09:00)
[2022-07-24] MEDS: AMLODIPINE 2.5MG TABLET PO SCH ×2 (09:00→21:00)
[2022-07-24] MEDS: PANTOPRAZOLE SODIUM 40 MG/VIAL IV SCH ×2 (09:56→22:14)
[2022-07-24] MEDS ORDERED: DILTIAZEM HCL 5MG/ML 5ML VIAL IV SCH (11:30)
[2022-07-24 12:00] VITALS: BP 152/89
[2022-07-24 16:00] VITALS: BP 147/87
[2022-07-24] MEDS ORDERED: CEFTRIAXONE 1 G PREMIX 50 ML IV SCH (17:30)
[2022-07-24 17:56] LABS: BASOPHILS % 0.3 % (0.0-2.0); EOSINOPHILS % 0.2 % (0.0-5.0); HEMATOCRIT. 28.3 % (36.0-48.0); LYMPHOCYTES % 54.8 % (20.0-50.0); MEAN CORPUSCULAR HEMOGLOBIN 28.2 pg (28.0-32.0); MEAN CORPUSCULAR VOLUME 88.6 fL (81.0-99.0); MEAN PLATELET VOLUME 8.9 fl (7.4-10.4); MONOCYTES % 13.6 % (2.0-8.0); NEUTROPHILS % 31.1 % (40.0-76.0); PLATELET 133 x1000/uL (130-400); RED BLOOD CELL COUNT 3.19 mill/uL (4.2-5.4); RED CELL DISTRIBUTION WIDTH 15.6 % (11.6-14.6)
[2022-07-24] MEDS: CEFTRIAXONE 1,000 MG in DEXTROSE 5% WATER 50 ML IV SCH (18:34)
[2022-07-24 18:44] LABS: CHLORIDE 109 mEq/L (98-107)
[2022-07-24 20:00] VITALS: BP 145/86
[2022-07-24] MEDS: AZITHROMYCIN 500 MG in DEXT 5% WATER 250 ML IV SCH (20:00)
[2022-07-24] MEDS: ATORVASTATIN CALCIUM 40MG TABLET PO SCH (21:00)
[2022-07-25] VITALS: BP 143/83
[2022-07-25] MEDS: DEXT 5%/0.45% NACL KCL 20MEQ/L 1,000 ML IV SCH ×2 (03:37→22:10)
[2022-07-25 04:00] VITALS: BP 137/80
[2022-07-25] MEDS ORDERED: GUAIFENESIN 200MG/10ML SUGAR FREE UDC PO PRN (06:30)
[2022-07-25 06:46] LABS: CHLORIDE 110 mEq/L (98-107)
[2022-07-25 07:13] LABS: BASOPHILS % 0.4 % (0.0-2.0); EOSINOPHILS % 0.7 % (0.0-5.0); HEMATOCRIT. 29.8 % (36.0-48.0); HEMOGLOBIN. 9.7 g/dL (12.0-16.0); LYMPHOCYTES % 51.8 % (20.0-50.0); MEAN CORPUSCULAR HEMOGLOBIN 28.7 pg (28.0-32.0); MEAN PLATELET VOLUME 8.7 fl (7.4-10.4); MONOCYTES % 10.5 % (2.0-8.0); NEUTROPHILS % 36.6 % (40.0-76.0); PLATELET 143 x1000/uL (130-400); RED BLOOD CELL COUNT 3.39 mill/uL (4.2-5.4); RED CELL DISTRIBUTION WIDTH 15.6 % (11.6-14.6)
[2022-07-25 08:00] VITALS: BP 163/87
[2022-07-25] MEDS: PANTOPRAZOLE SODIUM 40 MG/VIAL IV SCH ×2 (09:00→22:09)
[2022-07-25] MEDS: ASPIRIN 81MG EC TABLET PO SCH (09:00)
[2022-07-25] MEDS: HYDRALAZINE 20MG/ML VIAL IV PRN (09:52)
[2022-07-25] MEDS ORDERED: METOPROLOL TARTRATE 5MG/5ML VIAL IV SCH (10:00)
[2022-07-25 12:00] VITALS: BP 125/75
[2022-07-25] MEDS: ACETAMINOPHEN 650MG SUPP PR PRN (12:59)
[2022-07-25] MEDS: METOPROLOL TARTRATE 5MG/5ML VIAL IV SCH ×2 (14:07→22:10)
[2022-07-25 16:00] VITALS: BP 146/81
[2022-07-25] MEDS: CEFTRIAXONE 1,000 MG in DEXTROSE 5% WATER 50 ML IV SCH (17:20)
[2022-07-25 20:00] VITALS: BP 140/96
[2022-07-25] MEDS: ATORVASTATIN CALCIUM 40MG TABLET PO SCH (21:00)
[2022-07-25] MEDS: AZITHROMYCIN 500 MG in DEXT 5% WATER 250 ML IV SCH (22:10)
[2022-07-26] VITALS: BP 142/91
[2022-07-26 04:00] VITALS: BP 138/88
[2022-07-26] MEDS: METOPROLOL TARTRATE 5MG/5ML VIAL IV SCH ×3 (06:35→21:07)
[2022-07-26 08:00] VITALS: BP 144/99
[2022-07-26] MEDS: ASPIRIN 81MG EC TABLET PO SCH (08:03)
[2022-07-26 08:11] LABS: BASOPHILS % 0.6 % (0.0-2.0); HEMATOCRIT. 27.6 % (36.0-48.0); HEMOGLOBIN. 8.9 g/dL (12.0-16.0); MEAN CORPUSCULAR HEMOGLOBIN 28.5 pg (28.0-32.0); MEAN CORPUSCULAR VOLUME 88.8 fL (81.0-99.0); MEAN PLATELET VOLUME 8.9 fl (7.4-10.4); MONOCYTES % 11.9 % (2.0-8.0); NEUTROPHILS % 43.5 % (40.0-76.0); PLATELET 140 x1000/uL (130-400); RED CELL DISTRIBUTION WIDTH 15.4 % (11.6-14.6)
[2022-07-26] MEDS: PANTOPRAZOLE SODIUM 40 MG/VIAL IV SCH ×2 (08:29→21:07)
[2022-07-26 08:49] LABS: CHLORIDE 107 mEq/L (98-107)
[2022-07-26 12:00] VITALS: BP 175/91
[2022-07-26] MEDS: DEXT 5%/0.45% NACL KCL 20MEQ/L 1,000 ML IV SCH (15:32)
[2022-07-26 16:00] VITALS: BP 172/97
[2022-07-26] MEDS: CEFTRIAXONE 1,000 MG in DEXTROSE 5% WATER 50 ML IV SCH (17:27)
[2022-07-26 20:00] VITALS: BP 173/98
[2022-07-26] MEDS: ATORVASTATIN CALCIUM 40MG TABLET PO SCH (20:56)
[2022-07-26] MEDS: AZITHROMYCIN 500 MG in DEXT 5% WATER 250 ML IV SCH (21:07)
[2022-07-27] VITALS: BP 145/78
[2022-07-27 04:00] VITALS: BP 144/73
[2022-07-27] MEDS: METOPROLOL TARTRATE 5MG/5ML VIAL IV SCH ×3 (06:00→20:32)
[2022-07-27 06:54] LABS: HEMATOCRIT. 29.5 % (36.0-48.0); HEMOGLOBIN. 9.6 g/dL (12.0-16.0); MEAN CORPUSCULAR HEMOGLOBIN 28.4 pg (28.0-32.0); MEAN PLATELET VOLUME 8.4 fl (7.4-10.4); PLATELET 165 x1000/uL (130-400); RED BLOOD CELL COUNT 3.39 mill/uL (4.2-5.4); RED CELL DISTRIBUTION WIDTH 15.8 % (11.6-14.6)
[2022-07-27 07:23] LABS: CHLORIDE 109 mEq/L (98-107)
[2022-07-27 08:00] VITALS: BP 133/74
[2022-07-27] MEDS: ASPIRIN 81MG EC TABLET PO SCH (08:30)
[2022-07-27] MEDS: POTASSIUM CHLORIDE 20MEQ/PACKET PO SCH ×2 (08:30→13:41)
[2022-07-27] MEDS: DEXT 5%/0.45% NACL KCL 20MEQ/L 1,000 ML IV SCH ×2 (08:30→23:39)
[2022-07-27] MEDS: PANTOPRAZOLE SODIUM 40 MG/VIAL IV SCH ×2 (08:30→20:31)
[2022-07-27 09:55] LABS: PLATELET ESTIMATE NORMAL
[2022-07-27 12:00] VITALS: BP 135/77
[2022-07-27 16:00] VITALS: BP 131/75
[2022-07-27] MEDS: CEFTRIAXONE 1,000 MG in DEXTROSE 5% WATER 50 ML IV SCH (18:16)
[2022-07-27 20:00] VITALS: BP 150/90
[2022-07-27] MEDS: AZITHROMYCIN 500 MG in DEXT 5% WATER 250 ML IV SCH (20:31)
[2022-07-27] MEDS: ATORVASTATIN CALCIUM 40MG TABLET PO SCH (20:31)
[2022-07-28] VITALS: BP 133/80
[2022-07-28 04:00] VITALS: BP 144/76
[2022-07-28] MEDS: METOPROLOL TARTRATE 5MG/5ML VIAL IV SCH ×4 (05:48→20:51)
[2022-07-28 06:27] LABS: BASOPHILS % 0.3 % (0.0-2.0); EOSINOPHILS % 0.8 % (0.0-5.0); HEMATOCRIT. 28.1 % (36.0-48.0); HEMOGLOBIN. 9.1 g/dL (12.0-16.0); LYMPHOCYTES % 54.4 % (20.0-50.0); MEAN CORPUSCULAR HEMOGLOBIN 28.2 pg (28.0-32.0); MEAN CORPUSCULAR VOLUME 86.7 fL (81.0-99.0); MEAN PLATELET VOLUME 8.5 fl (7.4-10.4); MONOCYTES % 7.8 % (2.0-8.0); NEUTROPHILS % 36.7 % (40.0-76.0); PLATELET 179 x1000/uL (130-400); RED BLOOD CELL COUNT 3.24 mill/uL (4.2-5.4); RED CELL DISTRIBUTION WIDTH 15.5 % (11.6-14.6)
[2022-07-28 06:55] LABS: CHLORIDE 111 mEq/L (98-107)
[2022-07-28 08:00] VITALS: BP 170/100
[2022-07-28] MEDS: PANTOPRAZOLE SODIUM 40 MG/VIAL IV SCH ×2 (08:40→20:50)
[2022-07-28] MEDS: HYDRALAZINE 20MG/ML VIAL IV PRN (08:40)
[2022-07-28] MEDS: ASPIRIN 81MG EC TABLET PO SCH (08:41)
[2022-07-28 12:00] VITALS: BP 155/81
[2022-07-28 16:00] VITALS: BP 157/93
[2022-07-28] MEDS: DEXT 5%/0.45% NACL KCL 20MEQ/L 1,000 ML IV SCH (16:15)
[2022-07-28] MEDS: CEFTRIAXONE 1,000 MG in DEXTROSE 5% WATER 50 ML IV SCH (17:24)
[2022-07-28 20:00] VITALS: BP 167/104
[2022-07-28] MEDS: AZITHROMYCIN 500 MG in DEXT 5% WATER 250 ML IV SCH (20:51)
[2022-07-28] MEDS: ATORVASTATIN CALCIUM 40MG TABLET PO SCH (20:51)
[2022-07-29] VITALS: BP 149/88
[2022-07-29 04:00] VITALS: BP 158/81
[2022-07-29] MEDS: METOPROLOL TARTRATE 5MG/5ML VIAL IV SCH ×4 (05:08→20:22)
[2022-07-29 06:38] LABS: HEMATOCRIT. 26.9 % (36.0-48.0); HEMOGLOBIN. 8.8 g/dL (12.0-16.0); MEAN CORPUSCULAR HEMOGLOBIN 28.3 pg (28.0-32.0); MEAN CORPUSCULAR VOLUME 86.4 fL (81.0-99.0); MEAN PLATELET VOLUME 8.5 fl (7.4-10.4); PLATELET 189 x1000/uL (130-400); RED BLOOD CELL COUNT 3.11 mill/uL (4.2-5.4); RED CELL DISTRIBUTION WIDTH 15.5 % (11.6-14.6)
[2022-07-29 07:07] LABS: CHLORIDE 111 mEq/L (98-107)
[2022-07-29 08:00] VITALS: BP 175/95
[2022-07-29] MEDS: ASPIRIN 81MG EC TABLET PO SCH (09:00)
[2022-07-29] MEDS: PANTOPRAZOLE SODIUM 40 MG/VIAL IV SCH ×2 (09:04→20:22)
[2022-07-29] MEDS: HYDRALAZINE 20MG/ML VIAL IV PRN (09:04)
[2022-07-29] MEDS: DEXT 5%/0.45% NACL KCL 20MEQ/L 1,000 ML IV SCH (09:04)
[2022-07-29] MEDS ORDERED: POTASSIUM CHLORIDE INJ 40 MEQ in DEXT 5% WATER 250 ML IV ONE (10:45)
[2022-07-29 12:00] VITALS: BP 150/83
[2022-07-29] MEDS: HYDRALAZINE 20MG/ML VIAL IV SCH ×2 (12:51→17:23)
[2022-07-29] MEDS: KCL 20MEQ/100ML X 2 FOR TOTAL KCL 40MEQ/200ML IV SCH ×2 (12:54→17:21)
[2022-07-29 16:00] VITALS: BP 147/78
[2022-07-29 17:04] LABS: PLATELET ESTIMATE NORMAL
[2022-07-29 20:00] VITALS: BP 154/69
[2022-07-29] MEDS: ATORVASTATIN CALCIUM 40MG TABLET PO SCH (20:21)
[2022-07-30] VITALS: BP 161/70
[2022-07-30] MEDS: HYDRALAZINE 20MG/ML VIAL IV SCH ×4 (00:22→18:17)
[2022-07-30] MEDS: DEXT 5%/0.45% NACL KCL 20MEQ/L 1,000 ML IV SCH ×2 (02:50→18:17)
[2022-07-30 04:00] VITALS: BP 149/75
[2022-07-30] MEDS: METOPROLOL TARTRATE 5MG/5ML VIAL IV SCH ×5 (05:42→20:36)
[2022-07-30 06:50] LABS: BASOPHILS % 0.3 % (0.0-2.0); EOSINOPHILS % 0.3 % (0.0-5.0); HEMATOCRIT. 28.8 % (36.0-48.0); HEMOGLOBIN. 9.5 g/dL (12.0-16.0); LYMPHOCYTES % 44.2 % (20.0-50.0); MEAN CORPUSCULAR HEMOGLOBIN 28.2 pg (28.0-32.0); MEAN CORPUSCULAR VOLUME 85.9 fL (81.0-99.0); MEAN PLATELET VOLUME 8.5 fl (7.4-10.4); MONOCYTES % 13.4 % (2.0-8.0); NEUTROPHILS % 41.8 % (40.0-76.0); PLATELET 237 x1000/uL (130-400); RED BLOOD CELL COUNT 3.36 mill/uL (4.2-5.4); RED CELL DISTRIBUTION WIDTH 15.6 % (11.6-14.6)
[2022-07-30 08:05] VITALS: BP 165/50
[2022-07-30 08:11] LABS: CHLORIDE 110 mEq/L (98-107)
[2022-07-30] MEDS: ASPIRIN 81MG EC TABLET PO SCH (09:04)
[2022-07-30] MEDS: PANTOPRAZOLE SODIUM 40 MG/VIAL IV SCH ×2 (09:04→20:36)
[2022-07-30] MEDS ORDERED: SODIUM CHLORIDE 0.9% 500 ML IV NR (09:30)
[2022-07-30] MEDS ORDERED: MAGNESIUM 2 G PREMIX 50 ML IV NR (10:30)
[2022-07-30] MEDS ORDERED: KCL 20MEQ/100ML PREMIX 100 ML IV NR (10:30)
[2022-07-30 12:00] VITALS: BP 149/78
[2022-07-30 16:00] VITALS: BP 145/64
[2022-07-30 20:00] VITALS: BP 133/79
[2022-07-30] MEDS: ATORVASTATIN CALCIUM 40MG TABLET PO SCH (20:36)
[2022-07-31] VITALS: BP 162/91
[2022-07-31] MEDS: METOPROLOL TARTRATE 5MG/5ML VIAL IV SCH ×6 (00:39→21:24)
[2022-07-31] MEDS: HYDRALAZINE 20MG/ML VIAL IV SCH ×4 (00:39→17:40)
[2022-07-31 04:00] VITALS: BP 156/78
[2022-07-31] MEDS: ACETAMINOPHEN 650MG SUPP PR PRN (04:39)
[2022-07-31 07:59] VITALS: BP 151/88
[2022-07-31] MEDS: PANTOPRAZOLE SODIUM 40 MG/VIAL IV SCH ×2 (08:34→21:24)
[2022-07-31] MEDS: ASPIRIN 81MG EC TABLET PO SCH ×2 (08:34→09:30)
[2022-07-31 12:00] VITALS: BP 161/79
[2022-07-31] MEDS: DEXT 5%/0.45% NACL KCL 20MEQ/L 1,000 ML IV SCH (12:24)
[2022-07-31 16:00] VITALS: BP 158/64
[2022-07-31] MEDS: ATORVASTATIN CALCIUM 40MG TABLET PO SCH (21:00)
[2022-08-01] VITALS: BP 129/61
[2022-08-01] MEDS: DEXT 5%/0.45% NACL KCL 20MEQ/L 1,000 ML IV SCH ×2 (03:20→20:40)
[2022-08-01 04:00] VITALS: BP 154/70
[2022-08-01] MEDS: HYDRALAZINE 20MG/ML VIAL IV SCH ×4 (06:00→17:55)
[2022-08-01] MEDS: METOPROLOL TARTRATE 5MG/5ML VIAL IV SCH ×5 (06:06→20:40)
[2022-08-01 06:07] LABS: CHLORIDE 116 mEq/L (98-107)
[2022-08-01 06:35] LABS: BASOPHILS % 0.4 % (0.0-2.0); EOSINOPHILS % 0.6 % (0.0-5.0); HEMATOCRIT. 26.3 % (36.0-48.0); HEMOGLOBIN. 8.7 g/dL (12.0-16.0); LYMPHOCYTES % 21.8 % (20.0-50.0); MEAN CORPUSCULAR HEMOGLOBIN 28.5 pg (28.0-32.0); MEAN CORPUSCULAR VOLUME 86.2 fL (81.0-99.0); MEAN PLATELET VOLUME 8.3 fl (7.4-10.4); NEUTROPHILS % 68.2 % (40.0-76.0); PLATELET 277 x1000/uL (130-400); RED BLOOD CELL COUNT 3.04 mill/uL (4.2-5.4); RED CELL DISTRIBUTION WIDTH 15.7 % (11.6-14.6)
[2022-08-01 08:00] VITALS: BP 137/69
[2022-08-01] MEDS: PANTOPRAZOLE SODIUM 40 MG/VIAL IV SCH ×2 (08:41→20:39)
[2022-08-01] MEDS ORDERED: MAGNESIUM 2 G PREMIX 50 ML IV NR (11:00)
[2022-08-01 12:00] VITALS: BP 142/68
[2022-08-01] MEDS ORDERED: POTASSIUM CHLORIDE INJ 40 MEQ in DEXT 5% WATER 250 ML IV ONE (12:00)
[2022-08-01 16:00] VITALS: BP 134/71
[2022-08-01 20:00] VITALS: BP 153/58
[2022-08-01] MEDS: ATORVASTATIN CALCIUM 40MG TABLET PO SCH (20:40)
[2022-08-02] VITALS (7 sets, daily range): BP systolic 129–181; BP diastolic 75–98
[2022-08-02] MEDS: HYDRALAZINE 20MG/ML VIAL IV SCH ×4 (00:09→18:34)
[2022-08-02] MEDS: METOPROLOL TARTRATE 5MG/5ML VIAL IV SCH ×6 (01:31→21:56)
[2022-08-02] MEDS: ASPIRIN 81MG EC TABLET PO SCH (09:00)
[2022-08-02] MEDS: PANTOPRAZOLE SODIUM 40 MG/VIAL IV SCH ×2 (09:37→21:55)
[2022-08-02 11:30] LABS: EOSINOPHILS % 1.7 % (0.0-5.0); HEMATOCRIT. 26.2 % (36.0-48.0); HEMOGLOBIN. 8.7 g/dL (12.0-16.0); LYMPHOCYTES % 23.7 % (20.0-50.0); MEAN CORPUSCULAR HEMOGLOBIN 28.3 pg (28.0-32.0); MEAN CORPUSCULAR VOLUME 85.5 fL (81.0-99.0); MONOCYTES % 12.7 % (2.0-8.0); NEUTROPHILS % 60.9 % (40.0-76.0); PLATELET 278 x1000/uL (130-400); RED BLOOD CELL COUNT 3.07 mill/uL (4.2-5.4); RED CELL DISTRIBUTION WIDTH 15.9 % (11.6-14.6)
[2022-08-02 11:52] LABS: CHLORIDE 114 mEq/L (98-107)
[2022-08-02] MEDS: DEXT 5%/0.45% NACL KCL 20MEQ/L 1,000 ML IV SCH (12:17)
[2022-08-02] MEDS ORDERED: POTASSIUM CHLORIDE INJ 40 MEQ in DEXT 5% WATER 250 ML IV ONE (14:00)
[2022-08-02] MEDS: KCL 20MEQ/100ML X 2 FOR TOTAL KCL 40MEQ/200ML IV SCH ×2 (14:57→17:19)
[2022-08-02] MEDS: ATORVASTATIN CALCIUM 40MG TABLET PO SCH (21:55)
[2022-08-03] VITALS: BP 171/80
[2022-08-03] MEDS: HYDRALAZINE 20MG/ML VIAL IV SCH ×4 (00:51→18:38)
[2022-08-03] MEDS: METOPROLOL TARTRATE 5MG/5ML VIAL IV SCH ×6 (03:00→21:30)
[2022-08-03 04:00] VITALS: BP 163/90
[2022-08-03] MEDS: DEXT 5%/0.45% NACL KCL 20MEQ/L 1,000 ML IV SCH ×2 (05:20→22:26)
[2022-08-03 06:45] LABS: BASOPHILS % 0.8 % (0.0-2.0); EOSINOPHILS % 2.6 % (0.0-5.0); HEMATOCRIT. 28.9 % (36.0-48.0); HEMOGLOBIN. 9.4 g/dL (12.0-16.0); LYMPHOCYTES % 39.9 % (20.0-50.0); MEAN CORPUSCULAR HEMOGLOBIN 28.1 pg (28.0-32.0); MEAN CORPUSCULAR VOLUME 86.2 fL (81.0-99.0); MEAN PLATELET VOLUME 8.4 fl (7.4-10.4); NEUTROPHILS % 42.7 % (40.0-76.0); PLATELET 331 x1000/uL (130-400); RED BLOOD CELL COUNT 3.35 mill/uL (4.2-5.4); RED CELL DISTRIBUTION WIDTH 15.9 % (11.6-14.6)
[2022-08-03 06:55] LABS: CHLORIDE 113 mEq/L (98-107)
[2022-08-03 08:00] VITALS: BP 146/68
[2022-08-03] MEDS: ASPIRIN 81MG EC TABLET PO SCH (09:00)
[2022-08-03] MEDS: PANTOPRAZOLE SODIUM 40 MG/VIAL IV SCH ×2 (09:45→21:58)
[2022-08-03] MEDS ORDERED: CEFAZOLIN 1000MG PREMIX 50 ML IV NR (09:45)
[2022-08-03] MEDS ORDERED: MIDAZOLAM HCL 2 MG/2 ML VIAL ONE (10:45)
[2022-08-03] MEDS ORDERED: DEXAMETHASONE 4MG/ML 1ML VIAL ONE (10:46)
[2022-08-03] MEDS ORDERED: ONDANSETRON HCL 4MG/2ML INJ ONE (10:46)
[2022-08-03] MEDS ORDERED: PROPOFOL 200MG/20ML VIAL IV ONE (10:48)
[2022-08-03] MEDS ORDERED: LIDOCAINE HCL/PF 2% 20MG/ML 5 ML/VIAL ONE (10:54)
[2022-08-03 16:00] VITALS: BP 125/77
[2022-08-03 20:00] VITALS: BP 90/55
[2022-08-03] MEDS: ATORVASTATIN CALCIUM 40MG TABLET PO SCH (21:58)
[2022-08-04] VITALS: BP 157/81
[2022-08-04] MEDS: HYDRALAZINE 20MG/ML VIAL IV SCH ×2 (01:14→06:29)
[2022-08-04] MEDS: METOPROLOL TARTRATE 5MG/5ML VIAL IV SCH ×3 (01:14→09:41)
[2022-08-04 03:11] LABS: BASOPHILS % 0.7 % (0.0-2.0); HEMOGLOBIN. 9.2 g/dL (12.0-16.0); LYMPHOCYTES % 20.8 % (20.0-50.0); MEAN CORPUSCULAR HEMOGLOBIN 28.1 pg (28.0-32.0); MEAN CORPUSCULAR VOLUME 85.9 fL (81.0-99.0); MEAN PLATELET VOLUME 8.1 fl (7.4-10.4); MONOCYTES % 7.5 % (2.0-8.0); PLATELET 354 x1000/uL (130-400); RED BLOOD CELL COUNT 3.26 mill/uL (4.2-5.4); RED CELL DISTRIBUTION WIDTH 15.8 % (11.6-14.6)
[2022-08-04 03:15] LABS: CHLORIDE 114 mEq/L (98-107)
[2022-08-04 03:22] LABS: PROTHROMBIN TIME 11.2 sec (9.6-11.0)
[2022-08-04 04:00] VITALS: BP 137/60
[2022-08-04 08:00] VITALS: BP 142/85
[2022-08-04] MEDS: PANTOPRAZOLE SODIUM 40 MG/VIAL IV SCH ×2 (09:38→21:51)
[2022-08-04] MEDS: ASPIRIN 81MG EC TABLET PO SCH (09:42)
[2022-08-04] MEDS ORDERED: METOPROLOL TARTRATE 5MG/5ML VIAL IV PRN (10:45)
[2022-08-04 11:39] VITALS: BP 142/85
[2022-08-04 20:00] VITALS: BP 146/54
[2022-08-04] MEDS: AMLODIPINE 2.5MG TABLET PO SCH (21:51)
[2022-08-04] MEDS: ATORVASTATIN CALCIUM 40MG TABLET PO SCH (21:51)
[2022-08-05] VITALS: BP 143/71
[2022-08-05 04:00] VITALS: BP 134/64
[2022-08-05 08:00] VITALS: BP 176/73
[2022-08-05] MEDS: ASPIRIN 81MG EC TABLET PO SCH (09:00)
[2022-08-05] MEDS: PANTOPRAZOLE SODIUM 40 MG/VIAL IV SCH ×2 (09:14→20:41)
[2022-08-05] MEDS: HYDRALAZINE 20MG/ML VIAL IV PRN (09:15)
[2022-08-05] MEDS: LOSARTAN POTASSIUM 100 MG TABLET PO SCH (09:15)
[2022-08-05] MEDS: AMLODIPINE 2.5MG TABLET PO SCH (09:16)
[2022-08-05] MEDS: METOPROLOL TARTRATE 50MG TABLET PO SCH ×3 (10:31→18:02)
[2022-08-05 12:00] VITALS: BP 176/73
[2022-08-05 16:00] VITALS: BP 164/77
[2022-08-05 20:31] VITALS: BP 143/74
[2022-08-05] MEDS: AMLODIPINE 5MG TABLET PO SCH (20:41)
[2022-08-05] MEDS: ATORVASTATIN CALCIUM 40MG TABLET PO SCH (20:42)
[2022-08-05] MEDS: DEXT 5%/0.45% NACL KCL 20MEQ/L 1,000 ML IV SCH (23:45)
[2022-08-06 00:34] VITALS: BP 133/68
[2022-08-06 04:00] VITALS: BP 147/86
[2022-08-06 08:00] VITALS: BP 129/91
[2022-08-06] MEDS: PANTOPRAZOLE SODIUM 40 MG/VIAL IV SCH ×2 (08:52→22:32)
[2022-08-06] MEDS: METOPROLOL TARTRATE 50MG TABLET PO SCH (08:52)
[2022-08-06] MEDS: ASPIRIN 81MG EC TABLET PO SCH (08:53)
[2022-08-06] MEDS: LOSARTAN POTASSIUM 100 MG TABLET PO SCH (08:53)
[2022-08-06] MEDS: AMLODIPINE 5MG TABLET PO SCH ×2 (08:53→22:47)
[2022-08-06] MEDS: METOPROLOL TARTRATE 100MG TABLET PO SCH ×2 (09:00→22:53)
[2022-08-06 12:00] VITALS: BP 131/92
[2022-08-06] MEDS: HYDRALAZINE 20MG/ML VIAL IV PRN (12:25)
[2022-08-06 16:00] VITALS: BP 135/89
[2022-08-06] MEDS: DEXT 5%/0.45% NACL KCL 20MEQ/L 1,000 ML IV SCH (17:35)
[2022-08-06 20:20] VITALS: BP 139/89
[2022-08-06] MEDS: ATORVASTATIN CALCIUM 40MG TABLET PO SCH (22:47)
[2022-08-07] VITALS (7 sets, daily range): BP systolic 119–146; BP diastolic 57–93
[2022-08-07] MEDS: DEXT 5%/0.45% NACL KCL 20MEQ/L 1,000 ML IV SCH (02:00)
[2022-08-07] MEDS: LOSARTAN POTASSIUM 100 MG TABLET PO SCH ×2 (09:33→12:15)
[2022-08-07] MEDS: METOPROLOL TARTRATE 100MG TABLET PO SCH ×2 (09:34→21:00)
[2022-08-07] MEDS: PANTOPRAZOLE SODIUM 40 MG/VIAL IV SCH ×2 (09:34→21:42)
[2022-08-07] MEDS: ASPIRIN 81MG EC TABLET PO SCH (09:34)
[2022-08-07] MEDS: AMLODIPINE 5MG TABLET PO SCH ×3 (09:34→22:30)
[2022-08-07] MEDS: ATORVASTATIN CALCIUM 40MG TABLET PO SCH (21:42)
[2022-08-08] VITALS: BP 123/87
[2022-08-08] MEDS: DEXT 5%/0.45% NACL KCL 20MEQ/L 1,000 ML IV SCH (02:13)
[2022-08-08 04:00] VITALS: BP 156/84
[2022-08-08 08:00] VITALS: BP 117/78
[2022-08-08] MEDS: LOSARTAN POTASSIUM 100 MG TABLET PO SCH (08:56)
[2022-08-08] MEDS: ASPIRIN 81MG EC TABLET PO SCH (08:56)
[2022-08-08] MEDS: PANTOPRAZOLE SODIUM 40 MG/VIAL IV SCH (08:56)
[2022-08-08] MEDS: METOPROLOL TARTRATE 100MG TABLET PO SCH (08:57)
[2022-08-08 12:00] VITALS: BP 125/66
[2022-08-08 16:00] VITALS: BP 12/58
== END 2022-08-08 18:25 | DRG 689 ==
LOC: ER 16:12 → 6WST 07-10 07:15 → EDBEDREQ 07-10 07:18 → ENRESERV 07-10 07:20 → 6EST 07-14 23:05 → 6WST 07-17 06:20 → 7WST 07-22 11:52
PROVIDERS: ADMIT Internal Medicine; ATTEND Internal Medicine
PROC: 0DH64UZ Insertion of Feeding Device into Stomach, Percutaneous Endoscopic Approach (ICD-10-PCS; principal; 2022-07-27)
DX: N39.0 Urinary tract infection, site not specified (principal); A41.89 Other specified sepsis; E43 Unspecified severe protein-calorie malnutrition; I21.4 Non-ST elevation (NSTEMI) myocardial infarction; U07.1 COVID-19; K57.92 Diverticulitis of intestine, part unspecified, without perforation or abscess without bleeding; G93.40 Encephalopathy, unspecified; F03.90 Unspecified dementia, unspecified severity, without behavioral disturbance, psychotic disturbance, mood disturbance, and anxiety; E87.8 Other disorders of electrolyte and fluid balance, not elsewhere classified; D64.9 Anemia, unspecified; E78.5 Hyperlipidemia, unspecified; J44.9 Chronic obstructive pulmonary disease, unspecified; R33.9 Retention of urine, unspecified; K57.30 Diverticulosis of large intestine without perforation or abscess without bleeding; E83.42 Hypomagnesemia; E87.6 Hypokalemia; D69.6 Thrombocytopenia, unspecified; I11.9 Hypertensive heart disease without heart failure; K57.90 Diverticulosis of intestine, part unspecified, without perforation or abscess without bleeding; R63.0 Anorexia; R62.7 Adult failure to thrive; R45.1 Restlessness and agitation; R13.10 Dysphagia, unspecified; I95.9 Hypotension, unspecified; K29.70 Gastritis, unspecified, without bleeding; E88.09 Other disorders of plasma-protein metabolism, not elsewhere classified; Z68.20 Body mass index [BMI] 20.0-20.9, adult; Z79.899 Other long term (current) drug therapy
CPT/HCPCS: 36415; 71045; 74018; 74176; 80048; 80053; 81003; 82962; 83605; 83735; 83880; 84132; 84145; 84484; 85025; 86140; 87426; 92610; 93005; 93306; 97162; 97530; 99285; A6261; C1893; C9113; C9803; J0360; J0456; J0690; J0696; J1100; J1630; J2250; J2405; J2543; J2704; J3475; J3480; J3490; J7030; J7060